=== PATIENT | male | born 1955 ===

== ENCOUNTER 2018-06-06 19:42 | Emergency (ER) | payer OTHER ==
--- NOTE | 2018-06-06 20:23 | C.PDOC ---
History Of Present Illness 63 year old male presents to the ED for evaluation of new onset pain to left lower leg, increased redness around wound for one month. Patient reports chronic left lower leg wound for one year. Denies trauma. Patient has history of DM but has been noncompliant with medications. Patient denies fever, chills, nausea, vomiting. Patient states he has been non-complaint with DM medications "because I was doing well and thought it went away." NEW ONSET PAIN L LOWER LEG, INCR REDNESS AROUND WOUND X 1 MO. CHRONIC L LOWER LEG WOUND X 1 YEAR. NO TRAUMA. HO DM BUT NONCOMPLIANT W MEDS. NO FEVER, CHILLS, NV. 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 Time Seen by Provider: 06/06/18 20:02 Chief Complaint (Nursing): Lower Extremity Problem/Injury History Per: Patient History/Exam Limitations: no limitations Onset/Duration Of Symptoms: Days Current Symptoms Are (Timing): Still Present Past Medical History Reviewed: Historical Data, Nursing Documentation, Vital Signs Vital Signs: Last Vital Signs Temp 98.2 F 06/06/18 19:51 Pulse 94 H 06/06/18 19:51 Resp BP 131/76 06/06/18 19:51 Pulse Ox 20 L 06/06/18 19:51 - Medical History PMH: No Chronic Diseases Surgical History: No Surg Hx Family History: States: Unknown Family Hx - Social History Hx Alcohol Use: No Hx Substance Use: No - Immunization History Hx Tetanus Toxoid Vaccination: No Hx Influenza Vaccination: No Hx Pneumococcal Vaccination: No Review Of Systems Constitutional: Negative for: Fever, Chills Gastrointestinal: Negative for: Nausea, Vomiting Musculoskeletal: Positive for: Leg Pain (left, lower ) Physical Exam - Physical Exam Appears: Non-toxic, No Acute Distress Skin: Warm, Dry, Other (+CHRONIC L LOWER WOUND W EXTENSIVE EXCORIATION, +SURROUNDING ERYTHEMA C/W CELLULITIS; NO DC, FOCAL FLUCTUANCE, LYMPHANGITIS; B/L SEVERE VARICOSE VEINS) Head: Atraumatic, Normacephalic Eye(s): bilateral: Normal Inspection Oral Mucosa: Moist Neck: Supple Chest: Symmetrical, No Deformity, No Tenderness Cardiovascular: Rhythm Regular, No Murmur Respiratory: Normal Breath Sounds, No Rales, No Rhonchi, No Wheezing Extremity: Capillary Refill (less than 2 seconds ), Other (+MILD SWELL LOCALIZED TO CHRONIC WOUND) Neurological/Psych: Oriented x3, Normal Speech, Normal Cognition ED Course And Treatment - Laboratory Results Result Diagrams: 06/06/18 20:49 06/06/18 20:49 O2 Sat by Pulse Oximetry: 20 (on RA ) Pulse Ox Interpretation: Normal - Other Rad L TIB FIB X-Ray: Interpreted by Me (NEG) Progress Note: Bloodwork, Left tibia fibula XR ordered and reviewed. Ancef IVPB, Lovenox SC and Toradol IVP given. Progress - Re-Evaluation Re-evaluation Note: 06/06/18 21:41 VIA TRANS COMFORTABLE NAD IMPROVED. PS WANTS TO DO OUTPT TX, WILL FU CLINIC. ADVISED RETURN TOMORROW MORNING FOR VENOUS DOPPLER, VOICES UNDERSTANDING AND AGREES W PLAN - Data Reviewed Data Reviewed: Lab, Diagnostic imaging, Old records Disposition Counseled Patient/Family Regarding: Studies Performed, Diagnosis, Need For Followup, Rx Given - Disposition Referrals: [facility] [Outside] [facility] [Outside] [facility] [Provider Group] Disposition: HOME/ ROUTINE Disposition Time: 21:42 Condition: IMPROVED Additional Instructions: NATHANIEL TALLEY A LAS 8 AM PARA EL ULTRASONIDO DE RAI PIERNA Prescriptions: Cephalexin [cephalexin] 500 mg PO Q6 #28 cap Ibuprofen [Motrin] 400 mg PO QID #30 tab metFORMIN [glucOPHAGE] 850 mg PO DAILY #30 tab Instructions: Varicose Veins (DC), Cellulitis (Skin Infection), Adult (DC) Forms: [employer] (Thai) Print Language: ROMANIAN - Clinical Impression Clinical Impression: DM type 2 with diabetic chronic skin ulcer, Cellulitis, Leg pain, Diabetes type 2, uncontrolled - Scribe Statement The provider has reviewed the documentation as recorded by the Scribe (Isha Mendiola) Provider Attestation: All medical record entries made by the Scribe were at my direction and personally dictated by me. I have reviewed the chart and agree that the record accurately reflects my personal performance of the history, physical exam, medical decision making, and the department course for this patient. I have also personally directed, reviewed, and agree with the discharge instructions and disposition.
[2018-06-06] MEDS ORDERED: Enoxaparin 40 mg Syringe SC STA (20:26)
[2018-06-06] MEDS ORDERED: SODIUM CHLORIDE 0.9% IVPB STA (20:27)
[2018-06-06] MEDS ORDERED: CEFAZOLIN IVPB STA (20:27)
[2018-06-06 20:53] LABS: BASO % 0.6 % (0.0-2.0); EOS # 0.2 K/uL (0.0-0.7); EOS % 3.1 % (0.0-4.0); LYMPH # 3.3 K/uL (1.0-4.3); LYMPH % 43.5 % (20.0-40.0); MEAN CORPUSCULAR HEMOGLOBIN 30.8 pg (27.0-31.0); MEAN CORPUSCULAR HGB CONC 33.4 g/dL (33.0-37.0); MEAN PLATELET VOLUME 6.9 fL (7.2-11.7); MONO # 0.6 K/uL (0.0-0.8); NEUT # 3.4 K/uL (1.8-7.0); NEUT % 44.8 % (50.0-75.0); RBC 4.22 Mil/uL (4.40-5.90); RED CELL DISTRIBUTION WIDTH 12.6 % (11.5-14.5); WHITE BLOOD COUNT 7.6 K/uL (4.8-10.8)
[2018-06-06 21:05] LABS: BLOOD UREA NITROGEN 15 mg/dL (9-20); CALCIUM 8.8 mg/dl (8.6-10.4); GFR NON-AFRICAN AMERICAN > 60
[2018-06-06] MEDS ORDERED: Enoxaparin 100 mg Syringe ONE (21:07)
[2018-06-06] MEDS ORDERED: ceFAZolin 1 gm in NS 1 GM/100 ML BAG IVPB ONE (21:07)
[2018-06-06 22:19] VITALS: BP 141/82; PULSE 82; RESP 16; TEMP 99
[2018-06-07 04:48] VITALS: O2SAT 20
--- NOTE | 2018-06-07 07:50 | RAD ---
Date of service: 06/06/2018 PROCEDURE: Radiographs of the left tibia and fibula. HISTORY: PAIN COMPARISON: None available. TECHNIQUE: Frontal and lateral views obtained. FINDINGS: BONES: No fracture or destructive lesion. JOINT SPACES: Unremarkable. OTHER FINDINGS: Increased density within the subcutaneous soft tissues throughout the left leg suggests potential varices and/or cellulitis. No emphysematous soft tissue changes are associated or retained radiodense foreign body. IMPRESSION: No acute fracture or dislocation left tibia or fibula. Diffusely increased subcutaneous soft tissue density could reflect cellulitis with potential varices.
== END 2018-06-06 22:19 | disposition home or self-care (01) ==
LOC: C.ER 19:42
DX: L98.499 Non-pressure chronic ulcer of skin of other sites with unspecified severity (principal); L03.116 Cellulitis of left lower limb; E11.622 Type 2 diabetes mellitus with other skin ulcer; M79.605 Pain in left leg
CPT/HCPCS: 73590; 80048; 82948; 85025; 87040; 96372; 96374; 99285; J0690; J1650; J1885

== ENCOUNTER 2018-06-07 08:46 | Observation (INO) | payer OTHER ==
--- NOTE | 2018-06-07 11:00 | C.PDOC ---
History Of Present Illness Pt returned to the ED as instructed for a LLE duplex to assess for DVT. Pt was seen here yesterday and evaluated for diabetic left leg wound with cellulitis. Time Seen by Provider: 06/07/18 09:12 Chief Complaint (Nursing): Lower Extremity Problem/Injury History Per: Patient, Information Systems Consultant History/Exam Limitations: language barrier Onset/Duration Of Symptoms: Days Current Symptoms Are (Timing): Still Present Severity: Moderate Additional History Per: Prior Records Past Medical History Reviewed: Historical Data, Nursing Documentation, Vital Signs Vital Signs: Last Vital Signs Temp 98 F 06/07/18 09:01 Pulse 99 H 06/07/18 09:01 Resp 18 06/07/18 09:01 BP 136/82 06/07/18 09:01 Pulse Ox 99 06/07/18 09:01 - Medical History PMH: Diabetes Family History: States: Unknown Family Hx - Social History Hx Alcohol Use: No Hx Substance Use: No - Immunization History Hx Tetanus Toxoid Vaccination: No Hx Influenza Vaccination: No Hx Pneumococcal Vaccination: No Review Of Systems Except As Marked, All Systems Reviewed And Found Negative. Constitutional: Negative for: Fever Cardiovascular: Negative for: Chest Pain Respiratory: Negative for: Shortness of Breath, Hemoptysis Gastrointestinal: Negative for: Vomiting, Abdominal Pain Musculoskeletal: Positive for: Leg Pain (left). Negative for: Neck Pain, Back Pain Skin: Positive for: Rash Neurological: Negative for: Weakness, Numbness Physical Exam - Physical Exam Appears: Non-toxic, No Acute Distress Skin: Warm, Dry, Other (Large wound on anterior left lower leg with surrounding erythema) Head: Atraumatic, Normacephalic Eye(s): bilateral: PERRL, EOMI Neck: Normal ROM, Supple Cardiovascular: Rhythm Regular Respiratory: Normal Breath Sounds, No Accessory Muscle Use Gastrointestinal/Abdominal: Soft, No Tenderness Extremity: Normal ROM, Capillary Refill (wnl) Pulses: Left Dorsalis Pedis: Normal Neurological/Psych: Oriented x3, Normal Motor, Normal Sensation ED Course And Treatment O2 Sat by Pulse Oximetry: 99 Pulse Ox Interpretation: Normal - CT Scan/US BLE duplex Other Rad Studies (CT/US): Radiology Report Reviewed CT/US Interpretation: DVT in left leg Disposition Discussed With : Katie Vargas Comment: She accepted pt on hospitalist service. Doctor Will See Patient In The: Hospital Counseled Patient/Family Regarding: Studies Performed, Diagnosis - Disposition Disposition: HOSPITALIZED Disposition Time: 11:22 Condition: STABLE - Clinical Impression Clinical Impression: Left leg DVT, Diabetic ulcer of left lower leg, Cellulitis of left leg
[2018-06-07] MEDS ORDERED: Enoxaparin 80 mg Syringe SC STA (11:01)
[2018-06-07] MEDS ORDERED: Clindamycin 600mg/50ml D5W 600 MG/50 ML VIAL IVPB SCH ×2 (11:15→13:45)
[2018-06-07 11:41] LABS: BASO # 0.1 K/uL (0.0-0.2); BASO % 1.2 % (0.0-2.0); EOS # 0.2 K/uL (0.0-0.7); EOS % 3.3 % (0.0-4.0); HEMOGLOBIN 12.2 g/dL (12.0-18.0); LYMPH # 2.3 K/uL (1.0-4.3); LYMPH % 43.1 % (20.0-40.0); MEAN CELL VOLUME 92.2 fL (80.0-94.0); MEAN CORPUSCULAR HEMOGLOBIN 31.3 pg (27.0-31.0); MEAN CORPUSCULAR HGB CONC 33.9 g/dL (33.0-37.0); MEAN PLATELET VOLUME 6.8 fL (7.2-11.7); MONO # 0.5 K/uL (0.0-0.8); MONO % 8.9 % (0.0-10.0); NEUT # 2.4 K/uL (1.8-7.0); NEUT % 43.5 % (50.0-75.0); RBC 3.92 Mil/uL (4.40-5.90); RED CELL DISTRIBUTION WIDTH 12.5 % (11.5-14.5); WHITE BLOOD COUNT 5.5 K/uL (4.8-10.8)
[2018-06-07] MEDS ORDERED: Enoxaparin 80 mg Syringe ONE (11:44)
[2018-06-07 12:04] LABS: BLOOD UREA NITROGEN 23 mg/dL (9-20); GFR NON-AFRICAN AMERICAN > 60
[2018-06-07 12:05] LABS: ALB/GLOB RATIO 1.3 (1.0-2.1); ALBUMIN 3.9 g/dL (3.5-5.0); ALT/SGPT 8 U/L (21-72); AST/SGOT 14 U/L (17-59); CALCIUM 8.1 mg/dl (8.6-10.4)
--- NOTE | 2018-06-07 12:11 | CP.PCM.HP ---
<Alisson Rhoades - Last Filed: 06/07/18 17:25> History of Present Illness - History of Present Illness History of Present Illness: PGY-1 Alisson Rhoades D.O. H&P for Dr. Vargas's service: Patient is a 63 yo male with a history of untreated diabetes who presents with a L leg wound and pain. Patient states that he sustained the initial wound about 1 year ago by scratching his leg when putting on boots. He says he never sought treatment because it was not bothering him. He did not take any medications or put anything topical on the wound. He has left it open. Patient denies any numbn ess or tingling. He noticed some red-colored drainage awhile back but nothing significant since. He complains of severe itching and he admits to scratching. For the past 1 month, the patient has noticed increased pain and redness. For the past week, it has interfered with his walking- he describes it feeling like someone is pulling down on his leg while ambulating. He denies any fevers or chills. He came to the ED yesterday. They gave him Lovenox and Cefazolin. Patient opted to follow-up outpatient. The ED recommended he return to the hospital the next day for venous Doppler. The patient complied and came back today. 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 Drinks 1 beer every few days; smokes 1 cigarette every few days x many years, smokes crack- last use 1 month ago; denies IVDA PMD: none Present on Admission - Present on Admission Any Indicators Present on Admission: No History of DVT/PE: No History of Uncontrolled Diabetes: No Urinary Catheter: No Decubitus Ulcer Present: No History Surgical Site Infection Following: None Review of Systems - Constitutional Constitutional: absent: Chills, Fever, Headache, Weakness - EENT Eyes: absent: Change in Vision Ears: absent: Decreased Hearing Nose/Mouth/Throat: absent: Nasal Congestion - Cardiovascular Cardiovascular: absent: Chest Pain, Diaphoresis, Dyspnea, Edema, Palpitations - Respiratory Respiratory: absent: Cough, Dyspnea, Wheezing - Gastrointestinal Gastrointestinal: absent: Abdominal Pain, Constipation, Diarrhea, Nausea, Vomiting - Genitourinary Genitourinary: absent: Dysuria, Hematuria - Integumentary Integumentary: As Per HPI, Non-Healing Lesions, Pruritus - Neurological Neurological: Abnormal Gait (antalgic). absent: Dizziness, Numbness, Focal Weakness, Headaches, Tingling - Endocrine Endocrine: absent: Excessive Sweating, Fatigue, Palpitations - Hematologic/Lymphatic Hematologic: absent: Easy Bleeding, Easy Bruising, Lymphadenopathy Past Patient History - Infectious Disease Hx of Infectious Diseases: None - Tetanus Immunizations Tetanus Immunization: Unknown - Past Medical History & Family History Past Medical History?: Yes Pertinent Family History: mother, grandmother- diabetes - Past Social History Smoking Status: Light Smoker < 10 Cigarettes Daily Chewing Tobacco Use: No Cigar Use: No Occupation: cook Alcohol: < 2 Drinks/Day Drugs: Cocaine Home Situation {Lives}: Alone - ENDOCRINE/METABOLIC Hx Endocrine Disorders: Yes Hx Diabetes Mellitus Type 2: Yes - PSYCHIATRIC Hx Substance Use: No - SURGICAL HISTORY Hx Surgeries: No Meds Allergies/Adverse Reactions: Allergies Allergy/AdvReac Type Severity Reaction Status Date / Time No Known Allergies Allergy Verified 06/07/18 09:04 Physical Exam - Constitutional Appears: Non-toxic, No Acute Distress - Head Exam Head Exam: ATRAUMATIC, NORMAL INSPECTION - Eye Exam Eye Exam: EOMI, Normal appearance, PERRL - ENT Exam ENT Exam: Mucous Membranes Dry - Neck Exam Neck exam: Positive for: Normal Inspection - Respiratory Exam Respiratory Exam: Clear to Auscultation Bilateral, NORMAL BREATHING PATTERN. absent: Wheezes, Respiratory Distress - Cardiovascular Exam Cardiovascular Exam: REGULAR RHYTHM, +S1, +S2. absent: Systolic Murmur Additional comments: palpable pulses b/l of extremities - GI/Abdominal Exam GI & Abdominal Exam: Soft. absent: Distended, Tenderness Additional comments: umbilical hernia- easily reducible, painless - Extremities Exam Additional comments: LE varices b/l - Neurological Exam Neurological exam: Alert, CN II-XII Intact, Oriented x3 - Psychiatric Exam Psychiatric exam: Normal Affect, Normal Mood ( ) - Skin Skin Exam: Dry, Normal Color, Warm Additional comments: 7x10 cm wound on anterior tibia, no drainage or bleeding, dry scabs overlying area, surrounding erythema, warmth dry, cracked skin on feet b/l Results - Vital Signs Recent Vital Signs: Last Vital Signs Temp 98.4 F 06/07/18 11:44 Pulse 86 06/07/18 11:44 Resp 20 06/07/18 11:44 BP 160/90 H 06/07/18 11:44 Pulse Ox 99 06/07/18 11:44 - Labs Result Diagrams: 06/07/18 11:35 06/07/18 11:35 Labs: Laboratory Results - last 24 hr 06/07/18 06/07/18 06/07/18 11:35 11:35 11:35 WBC 5.5 RBC 3.92 L Hgb 12.2 Hct 36.1 MCV 92.2 MCH 31.3 H MCHC 33.9 RDW 12.5 Plt Count 291 MPV 6.8 L Neut % (Auto) 43.5 L Lymph % (Auto) 43.1 H [place] % (Auto) 8.9 Eos % (Auto) 3.3 Baso % (Auto) 1.2 Neut # (Auto) 2.4 Lymph # (Auto) 2.3 [place] # (Auto) 0.5 Eos # (Auto) 0.2 Baso # (Auto) 0.1 PT 11.0 INR 1.0 APTT 40 H Sodium 135 Potassium 4.1 Chloride 103 Carbon Dioxide 27 Anion Gap 9 L BUN 23 H Creatinine 0.6 L Est GFR ( Amer) > 60 Est GFR (Non-Af Amer) > 60 Random Glucose 193 H Calcium 8.1 L Total Bilirubin 0.4 AST 14 L ALT 8 L Alkaline Phosphatase 129 H Total Protein 6.9 Albumin 3.9 Globulin 3.0 Albumin/Globulin Ratio 1.3 Assessment & Plan - Assessment and Plan (Free Text) Assessment: Patient is a 63 yo male with a history of untreated diabetes who presents with L leg pain. He has a nonhealing wound on his L anterior tibia and was found to have a LLE DVT. Plan: Lower leg wound - Present for 1 year, nonhealing - LLE XR: soft tissue density representing cellulitis, varices - f/u wound and blood Cx - Zosyn 3.375 g IV Q6H- started 06/07 - Vanco 1 g IV Q12H- started 06/07 - Florastor 250 mg PO BID - Will transition to PO clindamycin Left lower extremity deep vein thrombosis, provoked - Contributing factors- smoking, obesity, untreated DM, nonhealing wound - LE Doppler: DVT in L gastrocnemius vein, severe reflux of L great saphenous vein - Start Eliquis 10 mg PO BID x 7 days then 5 mg BID Type 2 diabetes mellitus - Patient was previously on insulin but has been off all medications for a few years - f/u HgbA1c - f/u lipid panel - f/u microalbuminuria - Diabetic diet - Accuchecks ACHS - Hypoglycemia protocol - ISS low dose - Lisinopril 5 mg PO daily - ASA 81 mg PO daily - Crestor 2.5 mg PO QHS - tobacco prevention health educator consult - Crt referral Polysubstance use - Patient admits to alcohol, tobacco, and crack use - f/u UDS - Cessation counseling- extensive conversation regarding substance use consequences, including heart disease - AA and NA referral - Nicodersylvia daily Bilateral onychomycosis - Podiatry consult (Yossi) Ppx: VTE: SCDs contraindicated, starting Eliquis for therapeutic anticoag GI: not indicated Code status: full code Case was discussed with attending, Dr. Vargas. <Katie Vargas V - Last Filed: 06/07/18 22:08> Results - Vital Signs Recent Vital Signs: Last Vital Signs Temp 98.4 F 06/07/18 16:00 Pulse 93 H 06/07/18 16:00 Resp 20 06/07/18 16:00 BP 119/71 06/07/18 16:00 Pulse Ox 96 06/07/18 16:00 - Labs Result Diagrams: 06/07/18 11:35 06/07/18 11:35 Labs: Laboratory Results - last 24 hr 06/07/18 06/07/18 06/07/18 11:35 11:35 11:35 WBC 5.5 RBC 3.92 L Hgb 12.2 Hct 36.1 MCV 92.2 MCH 31.3 H MCHC 33.9 RDW 12.5 Plt Count 291 MPV 6.8 L Neut % (Auto) 43.5 L Lymph % (Auto) 43.1 H [place] % (Auto) 8.9 Eos % (Auto) 3.3 Baso % (Auto) 1.2 Neut # (Auto) 2.4 Lymph # (Auto) 2.3 [place] # (Auto) 0.5 Eos # (Auto) 0.2 Baso # (Auto) 0.1 PT 11.0 INR 1.0 APTT 40 H Sodium 135 Potassium 4.1 Chloride 103 Carbon Dioxide 27 Anion Gap 9 L BUN 23 H Creatinine 0.6 L Est GFR ( Amer) > 60 Est GFR (Non-Af Amer) > 60 POC Glucose (mg/dL) Random Glucose 193 H Calcium 8.1 L Total Bilirubin 0.4 AST 14 L ALT 8 L Alkaline Phosphatase 129 H Total Protein 6.9 Albumin 3.9 Globulin 3.0 Albumin/Globulin Ratio 1.3 06/07/18 06/07/18 06/07/18 13:30 16:26 21:43 WBC RBC Hgb Hct MCV MCH MCHC RDW Plt Count MPV Neut % (Auto) Lymph % (Auto) [place] % (Auto) Eos % (Auto) Baso % (Auto) Neut # (Auto) Lymph # (Auto) [place] # (Auto) Eos # (Auto) Baso # (Auto) PT INR APTT Sodium Potassium Chloride Carbon Dioxide Anion Gap BUN Creatinine Est GFR ( Amer) Est GFR (Non-Af Amer) POC Glucose (mg/dL) 159 H 209 H 115 H Random Glucose Calcium Total Bilirubin AST ALT Alkaline Phosphatase Total Protein Albumin Globulin Albumin/Globulin Ratio Attending/Attestation - Attestation I have personally seen and examined this patient.: Yes I have fully participated in the care of the patient.: Yes I have reviewed all pertinent clinical information: Yes Notes (Text): 63 year old Male PMHx diabetes for more than ten plus years, tobacco abuse, prior cocaine use comes following initial evaluation for left lower extremity anterior minor wound in the emergency room. He was prescribed antibiotic he was unable to fill them since pharmacy was not opened. He came back to evaluated with US given this was not available in the Emergency Room. Patient had been given Lovenox 100mg sub yesterday for prophylactic treatment. Patient completed US noted for acute DVT. Likely provoked given patient is current smoker, obesity, sedentary, with noted ulcer over the anterior aspect of minor. Patient denies history of cancer, and has never had endoscopy or colonoscopy. Patient is currently not on medications for his diabetes which will impact wound healing. Will given antibiotic therapy for his cellulitis, started Eliquis for treatment of DVT, evaluation to be obtained by podiatry. Patient strongly counselled regarding adverse effects of cocaine use including cardiac arrest and , tobacco use including clot formation, cancer, and delayed wound healing, and the adverse complications of diabetes including eye, heart, kidney, and foot problems as well. Possible discharge tomorrow; patient will need to be established at the [facility] for further diabetes management and possible podiatry clinic, Assessment/Plan 1) Nonhealing Lower leg wound Assessment/plan - Present for 1 year, nonhealing - LLE XR: soft tissue density representing cellulitis, varices - f/u wound and blood Cx - Zosyn 3.375 g IV Q6H- started 06/07/18 - Vanco 1 g IV Q12H- started 06/07/18 - Florastor 250 mg PO BID - Will transition to PO clindamycin for discharge 2) Left lower extremity deep vein thrombosis, provoked Assessment/plan - Contributing factors- smoking, obesity, untreated DM, nonhealing wound - LE Doppler: DVT in L gastrocnemius vein, severe reflux of L great saphenous vein - Given therapuetic lovenox in ED night before and today; transition to NOAC - Start Eliquis 10 mg PO BID x 7 days then 5 mg BID to complete 3 month course for DVT 3) Type 2 diabetes mellitus, history of noncompliance Assessment/plan - Patient was previously on insulin but has been off all medications for a few years - f/u HgbA1c - f/u lipid panel - f/u microalbuminuria - Diabetic diet - Accuchecks ACHS - Hypoglycemia protocol - ISS low dose - Lisinopril 5 mg PO daily for renoprotection - ASA 81 mg PO daily for cardioprotective agent - Crestor 2.5 mg PO QHS given diabetes is a cardiovascular equivalent - tobacco prevention health educator consult - Crt referral 4) Polysubstance use Assessment/plan - Patient admits to alcohol, tobacco, and crack use - f/u UDS - Cessation counseling- extensive conversation regarding substance use consequences, including heart disease - AA and NA referral - Nicoderm daily 5) Bilateral onychomycosis Assessment/plan - Podiatry consult (Yossi) for further evaluation 6) Ppx: Assessment/plan * VTE: SCDs contraindicated given acute DVT, starting Eliquis for therapeutic treatment for DVT * GI: not indicated * gentle iv hydration given patient appears clinically dry
[2018-06-07] MEDS ORDERED: Glucagon Recombinant 1 mg Inj IM PRN (12:56)
[2018-06-07] MEDS ORDERED: Dextrose 50% SYRINGE Inj (50 ml) IVP PRN (12:56)
--- NOTE | 2018-06-07 13:52 | VASCLAB ---
Date of service: 06/07/2018 PROCEDURE: Lower Extremity Venous Duplex Exam. HISTORY: Left leg cellulitis, r/o DVT PRIORS: None. TECHNIQUE: Bilateral common femoral, femoral, popliteal and posterior tibial, peroneal and great saphenous veins were evaluated. Flow was assessed with color Doppler, compressibility, assessment of phasic flow and augmentation response. Report prepared by RABIA Galvin FINDINGS: RIGHT: 1. Common Femoral Vein: 1.1. Compressibility - Fully compressible: Thrombus - None : Flow - Phasic: Augmentation -Normal: Reflux - None. 2. Femoral Vein: 2.1. Compressibility - Fully compressible: Thrombus - None : Flow - Phasic: Augmentation -Normal: Reflux - None. 3. Popliteal Vein: 3.1. Compressibility - Fully compressible: Thrombus - None : Flow - Phasic: Augmentation -Normal: Reflux - None. 4. Posterior Tibial Vein: 4.1. Compressibility - Fully compressible: Thrombus - None: Flow - Phasic: Augmentation -Normal: Reflux - None. 5. Peroneal Vein: 5.1. Compressibility - Fully compressible: Thrombus - None: Flow - Phasic: Augmentation -Normal: Reflux - None. 6. Great Saphenous Vein: 6.1. Compressibility - Fully compressible: Thrombus - None: Flow - Phasic: Augmentation - Normal: Reflux - Mild3.39s LEFT: 1. Common Femoral Vein: 1.1. Compressibility - Fully compressible: Thrombus - None: Flow - Phasic: Augmentation -Normal: Reflux - None. 2. Femoral Vein: 2.1. Compressibility - Fully compressible: Thrombus - None: Flow - Phasic: Augmentation -Normal: Reflux - None. 3. Popliteal Vein: 3.1. Compressibility - Fully compressible: Thrombus - None : Flow - Phasic: Augmentation -Normal: Reflux - None. 4. Posterior Tibial Vein: 4.1. Compressibility - Fully compressible: Thrombus - None: Flow - Phasic: Augmentation -Normal: Reflux - None. 5. Peroneal Vein: 5.1. Compressibility - Fully compressible: Thrombus - None: Flow - Phasic: Augmentation -Normal: Reflux - None. 6. Great Saphenous Vein: 6.1. Compressibility - Fully compressible: Thrombus - None: Flow - Phasic: Augmentation - Normal: Reflux - Severe4.11s OTHER FINDINGS: Right: None significant. Left: The left gastrocnemius veins are partially compressible with echolucent thrombus formation. Findings were conveyed to Leandra Berman at 10:38 a.m. IMPRESSION: Right: No evidence of deep or superficial vein thrombosis of the right lower extremity. Mild reflux noted of the right great saphenous vein. Left: Acute deep vein thrombosis of the left gastrocnemius veins. Severe reflux noted of the left great saphenous vein.
[2018-06-07] MEDS ORDERED: Clindamycin 600mg/50ml NS 600 MG/50 ML BAG IVPB ONE (14:00)
[2018-06-07] MEDS ORDERED: Sodium Chloride 0.9% 1,000 ML IV SCH ×2 (14:00→22:00)
[2018-06-07] MEDS ORDERED: Sodium Chloride 0.9% 1,000 ML ONE (14:15)
[2018-06-07 16:38] VITALS: RESP 20
[2018-06-07] MEDS: Piperacillin/Tazobact 3.375 GM in Sodium Chloride 100 ML IVPB SCH ×2 (17:40→22:15)
[2018-06-07] MEDS: (Novolin R) Insulin Human Regular 100 units/ml vial SC SCH ×2 (17:48→22:20)
[2018-06-07] MEDS: Saccharomyces Boulardi 250 mg Cap PO SCH (17:49)
[2018-06-07] MEDS: Vancomycin 1 gm/NS 200 ml 1 GM/200 ML BAG IVPB SCH (18:15)
[2018-06-07] MEDS ORDERED: Rosuvastatin Calcium 2.5 mg Tab PO SCH (22:00)
[2018-06-07 22:39] LABS: URINE BILIRUBIN NEGATIVE (NEGATIVE); URINE CLARITY CLEAR (Clear); URINE COLOR STRAW (YELLOW); URINE GLUCOSE (UA) NORMAL (Normal)
[2018-06-07 22:40] LABS: URINE BLOOD NEGATIVE (NEGATIVE); URINE LEUKOCYTE ESTERASE NEG Leu/uL (Negative); URINE PROTEIN NEGATIVE (NEGATIVE); URINE UROBILINOGEN 0.2 mg/dL (0.2-1.0)
[2018-06-07 22:41] LABS: SQUAMOUS EPITHIAL < 1 /hpf (0-5)
[2018-06-07 22:45] LABS: BARBITURATES, UR NEGATIVE (NEGATIVE); BENZODIAZEPINES, UR NEGATIVE (NEGATIVE); OPIATES, UR NEGATIVE (NEGATIVE); PHENCYCLIDINE, UR NEGATIVE (NEGATIVE)
[2018-06-08] MEDS: Piperacillin/Tazobact 3.375 GM in Sodium Chloride 100 ML IVPB SCH ×3 (02:29→15:07)
[2018-06-08] MEDS: Vancomycin 1 gm/NS 200 ml 1 GM/200 ML BAG IVPB SCH (03:18)
--- NOTE | 2018-06-08 07:25 | CP.PCM.DIS ---
Provider - Provider Date of Admission: 06/07/18 11:24 Attending physician: Katie Vargas DO Primary care physician: none Consults: 06/07/18 12:55 Podiatry Consult Routine Comment: please inform podiatry resident Consulting Provider: Charlene Sy Consulting Physician: Charlene Sy Reason for Consult: left lower anterior minor ulcer, tinea pedis, diabetic 06/07/18 17:15 Diabetic Education Referral Routine Comment: Physician Instructions: Reason For Exam: untreated t2dm 06/07/18 21:52 Wound Care [Nursing Referral for Wound Care] Routine Comment: Physician Instructions: Reason For Exam: anterior minor left lower extremity Time Spent in preparation of Discharge (in minutes): 45 Diagnosis - Discharge Diagnosis (1) Left leg DVT Status: Acute Priority: High (2) Diabetic ulcer of left lower leg Status: Acute Priority: High (3) T2DM (type 2 diabetes mellitus) Status: Chronic Priority: High (4) Drug use Status: Chronic Priority: Medium (5) Onychomycosis Status: Chronic Priority: Low Hospital Course - Lab Results Lab Results: Most Recent Lab Values WBC 5.5 K/uL (4.8-10.8) 06/07/18 11:35 RBC 3.92 Mil/uL (4.40-5.90) L 06/07/18 11:35 Hgb 12.2 g/dL (12.0-18.0) 06/07/18 11:35 Hct 36.1 % (35.0-51.0) 06/07/18 11:35 MCV 92.2 fL (80.0-94.0) 06/07/18 11:35 MCH 31.3 pg (27.0-31.0) H 06/07/18 11:35 MCHC 33.9 g/dL (33.0-37.0) 06/07/18 11:35 RDW 12.5 % (11.5-14.5) 06/07/18 11:35 Plt Count 291 K/uL (130-400) 06/07/18 11:35 MPV 6.8 fL (7.2-11.7) L 06/07/18 11:35 Neut % (Auto) 43.5 % (50.0-75.0) L 06/07/18 11:35 Lymph % (Auto) 43.1 % (20.0-40.0) H 06/07/18 11:35 [place] % (Auto) 8.9 % (0.0-10.0) 06/07/18 11:35 Eos % (Auto) 3.3 % (0.0-4.0) 06/07/18 11:35 Baso % (Auto) 1.2 % (0.0-2.0) 06/07/18 11:35 Neut # (Auto) 2.4 K/uL (1.8-7.0) 06/07/18 11:35 Lymph # (Auto) 2.3 K/uL (1.0-4.3) 06/07/18 11:35 [place] # (Auto) 0.5 K/uL (0.0-0.8) 06/07/18 11:35 Eos # (Auto) 0.2 K/uL (0.0-0.7) 06/07/18 11:35 Baso # (Auto) 0.1 K/uL (0.0-0.2) 06/07/18 11:35 PT 11.0 SECONDS (9.7-12.2) 06/07/18 11:35 INR 1.0 06/07/18 11:35 APTT 40 SECONDS (21-34) H 06/07/18 11:35 Sodium 135 mmol/L (132-148) 06/07/18 11:35 Potassium 4.1 mmol/L (3.6-5.2) 06/07/18 11:35 Chloride 103 mmol/L (98-107) 06/07/18 11:35 Carbon Dioxide 27 mmol/L (22-30) 06/07/18 11:35 Anion Gap 9 (10-20) L 06/07/18 11:35 BUN 23 mg/dL (9-20) H 06/07/18 11:35 Creatinine 0.6 mg/dL (0.8-1.5) L 06/07/18 11:35 Est GFR ( Amer) > 60 06/07/18 11:35 Est GFR (Non-Af Amer) > 60 06/07/18 11:35 POC Glucose (mg/dL) 115 mg/dL (65-110) H 06/07/18 21:43 Random Glucose 193 mg/dL (75-110) H 06/07/18 11:35 Calcium 8.1 mg/dl (8.6-10.4) L 06/07/18 11:35 Total Bilirubin 0.4 mg/dL (0.2-1.3) 06/07/18 11:35 AST 14 U/L (17-59) L 06/07/18 11:35 ALT 8 U/L (21-72) L 06/07/18 11:35 Alkaline Phosphatase 129 U/L (38-126) H 06/07/18 11:35 Total Protein 6.9 g/dL (6.3-8.3) 06/07/18 11:35 Albumin 3.9 g/dL (3.5-5.0) 06/07/18 11:35 Globulin 3.0 gm/dL (2.2-3.9) 06/07/18 11:35 Albumin/Globulin Ratio 1.3 (1.0-2.1) 06/07/18 11:35 Urine Color Straw (YELLOW) 06/07/18 22:19 Urine Clarity Clear (Clear) 06/07/18 22: Urine pH 8.0 (5.0-8.0) 06/07/18 22:19 Ur Specific [place] 1.016 (1.003-1.030) 06/07/18 22:19 Urine Protein Negative mg/dL (NEGATIVE) 06/07/18 22: Urine Glucose (UA) Normal mg/dL (Normal) 06/07/18 22:19 Urine Ketones Negative mg/dL (NEGATIVE) 06/07/18 22:19 Urine Blood Negative (NEGATIVE) 06/07/18 22: Urine Nitrate Negative (NEGATIVE) 06/07/18 22: Urine Bilirubin Negative (NEGATIVE) 06/07/18 22: Urine Urobilinogen 0.2 mg/dL (0.2-1.0) 06/07/18 22:19 Ur Leukocyte Esterase Neg Maria M/uL (Negative) 06/07/18 22:19 Urine WBC (Auto) < 1 /hpf (0-5) 06/07/18 22:19 Urine RBC (Auto) < 1 /hpf (0-3) 06/07/18 22:19 Ur Squamous Epith Cells < 1 /hpf (0-5) 06/07/18 22:19 Urine Microalbumin 7.8 mg/L (0.0-16.6) 06/07/18 22:19 Urine Opiates Screen Negative (NEGATIVE) 06/07/18 22:19 Urine Methadone Screen Negative (NEGATIVE) 06/07/18 22:19 Ur Barbiturates Screen Negative (NEGATIVE) 06/07/18 22:19 Ur Phencyclidine Scrn Negative (NEGATIVE) 06/07/18 22:19 Ur Amphetamines Screen Negative (NEGATIVE) 06/07/18 22:19 U Benzodiazepines Scrn Negative (NEGATIVE) 06/07/18 22:19 U Oth Cocaine Metabols Negative (NEGATIVE) 06/07/18 22:19 U Cannabinoids Screen Negative (NEGATIVE) 06/07/18 22:19 - Hospital Course Hospital Course: Patient is a 63 yo male with a history of untreated diabetes who presents with a L leg wound and pain. Patient states that he sustained the initial wound about 1 year ago by scratching his leg when putting on boots. He says he never sought treatment because it was not bothering him. He did not take any medications or put anything topical on the wound. He has left it open. Patient denies any numbness or tingling. He noticed some red-colored drainage awhile back but nothing significant since. He complains of severe itching and he admits to scratching. For the past 1 month, the patient has noticed increased pain and redness. For the past week, it has interfered with his walking- he describes it feeling like someone is pulling down on his leg while ambulating. He denies any fevers or chills. He came to the ED yesterday. They gave him Lovenox and Cefazolin. Patient opted to follow-up outpatient. The ED recommended he return to the hospital the next day for venous Doppler. The patient complied and came back today. Lower extremity Doppler showed a DVT in L gastrocnemius vein and severe reflux of L great saphenous vein. Patient was started on Eliquis. LLE XR demonstrated soft tissue density representing cellulitis and varices without signs of osteomyelitis. Wound seems consistent with venous stasis. Patient was started on broad spectrum antibiotics. Podiatry was consulted and recommended outpatient care, no dressings needed. Patient's A1c is 9. Glucose was monitored ACHS, and he was placed on an insulin sliding scale. He was instructed on how to check his glucose at home and record results on a log. Upon discharge, patient was ambulating independently without significant pain. He was tolerating his medications. His glucose was fairly controlled. His vitals were stable. Patient was counseled several times about diet/exercise and drinking/smoking/drug cessation. Discharge Exam - Head Exam Head Exam: ATRAUMATIC Additional comments: dry scaly patches interspersed - Eye Exam Eye Exam: EOMI, Normal appearance - ENT Exam ENT Exam: Mucous Membranes Moist - Neck Exam Neck exam: Normal Inspection - Respiratory Exam Respiratory Exam: Clear to PA & Lateral, NORMAL BREATHING PATTERN, UNREMARKABLE - Cardiovascular Exam Cardiovascular Exam: REGULAR RHYTHM, +S1, +S2 - GI/Abdominal Exam GI & Abdominal Exam: Soft, Unremarkable. absent: Distended, Tenderness - Extremities Exam Extremities exam: normal capillary refill, pedal pulses present Additional comments: b/l LE varices - Back Exam Back exam: NORMAL INSPECTION - Neurological Exam Neurological exam: Alert, CN II-XII Intact, Normal Gait, Oriented x3 - Psychiatric Exam Psychiatric exam: Normal Affect, Normal Mood - Skin Additional comments: 7x10 cm wound on anterior tibia, no drainage or bleeding, dry scabs overlying area, surrounding erythema, warmth - area of arythema outlined in marker- slightly decreased in size dry, cracked skin on feet b/l Discharge Plan - Discharge Medications Prescriptions: Aspirin [Ecotrin] 81 mg PO DAILY #30 tabec Blood-Glucose Control, Normal [Meter-Check] 1 each ACHS #1 each Clindamycin [Cleocin] 300 mg PO TID #21 cap Fluocinonide [Lidex 0.05% Topical Solution] 20 applic EXT Q12H #1 bottle Lancets/Blood Glucose Strips [Fora [id number] Strp-Lnct] 1 each ACHS #1 combo..pkg Lisinopril [Zestril] 5 mg PO DAILY #30 tab MetFORMIN [glucoPHAGE] 1,000 mg PO BID #60 tab Rosuvastatin Calcium 2.5 [Crestor] 2.5 mg PO HS #30 tab - Follow Up Plan Condition: STABLE Disposition: HOME/ ROUTINE Patient education suggested?: Yes Instructions: Clindamycin (Systemic), Cellulitis (Skin Infection), Adult (DC), Aspirin, Lisinopril, Metformin, Rosuvastatin, Deep Venous Thrombosis (DC) Additional Instructions: Follow[facility]up with [facility]. You have an appointment on June 27 at 2:30 PM. This will serve as your primary care provider and will coordinate all your medical care and provide you with medication refills. You can call [phone] for assistance. Follow-up with the podiatry clinic at [facility] as well. It is important to take all medications as instructed. You will be prescribed Eliquis for your blood clot. You can use the prescription card at [facility] across from the hospital. You are instructed to stop drinking alcohol, smoking, and using drugs. Please attend Alcoholics Anonymous (AA) and Narcotics Anonymous (NA) meetings for support. YOu may also buy nicotine gum/patches [id number]. You are encouraged to start a healthy diet and exercise regimen. If symptoms recur, return to the nearest emergency room. Seguimiento con la Clnica de [place] en el [facility]. Tiene florencio manish el a las 2:30 PM. [place] servir dilip mcmahon proveedor de atencin primaria y coordinar toda mcmahon atencin mdica y le proporcionar reabastecimientos de medicamentos. Puede llamar al [phone] para obtener ayuda. Seguimiento con la clnica de podologa en el [facility]. Es importante preston todos los medicamentos dilip se indica. Le recetarn Eliquis para mcmahon cogulo de karla. Puede usar la tarjeta de recetas en [facility] frente al hospital. Se le indica que deje de beber alcohol, fumar y consumir drogas. Por favor asista a las reuniones de Alcohlicos Annimos (AA) y Narcticos Annimos (NA) para apoyo. Hector puede comprar chicles / parches de nicotina de venta [place]. Se le recomienda comenzar florencio dieta saludable y un rgimen de ejercicio. Si los sntomas se repiten, regrese a la saleem de emergencias ms cercana. Referrals: [facility] [Outside] Charlene Sy DPM [Staff Provider] -
[2018-06-08 07:36] LABS: BASO # 0.1 K/uL (0.0-0.2); EOS # 0.2 K/uL (0.0-0.7); HEMOGLOBIN 12.1 g/dL (12.0-18.0); LYMPH # 2.7 K/uL (1.0-4.3); LYMPH % 45.7 % (20.0-40.0); MEAN CELL VOLUME 91.6 fL (80.0-94.0); MEAN CORPUSCULAR HEMOGLOBIN 31.5 pg (27.0-31.0); MEAN CORPUSCULAR HGB CONC 34.4 g/dL (33.0-37.0); MEAN PLATELET VOLUME 6.9 fL (7.2-11.7); MONO # 0.5 K/uL (0.0-0.8); MONO % 8.3 % (0.0-10.0); NEUT # 2.5 K/uL (1.8-7.0); NRBC % 0.2 % (0.0-2.0); RBC 3.85 Mil/uL (4.40-5.90); RED CELL DISTRIBUTION WIDTH 12.4 % (11.5-14.5); WHITE BLOOD COUNT 5.9 K/uL (4.8-10.8)
[2018-06-08 07:57] LABS: ALB/GLOB RATIO 1.2 (1.0-2.1); ALBUMIN 3.5 g/dL (3.5-5.0); ALT/SGPT 14 U/L (21-72); AST/SGOT 19 U/L (17-59); BLOOD UREA NITROGEN 12 mg/dL (9-20); CALCIUM 8.3 mg/dl (8.6-10.4); GFR NON-AFRICAN AMERICAN > 60; HDL CHOLESTEROL 29 mg/dL (30-70)
[2018-06-08 08:12] LABS: LDL CHOLESTEROL 85 mg/dL (0-129)
[2018-06-08] MEDS: (Novolin R) Insulin Human Regular 100 units/ml vial SC SCH ×2 (08:12→12:24)
[2018-06-08] MEDS: Saccharomyces Boulardi 250 mg Cap PO SCH (10:15)
--- NOTE | 2018-06-08 14:15 | CP.PCM.CON ---
History of Present Illness - History of Present Illness History of Present Illness: Podiatry Consult Note- Dr. Sy 63 year old male with PMH of DM seen and evaluated for leg leg pain. Patient reports having the pain and discoloration to his front leg for over 1 year. Patient reports he sustained the injury from wearing boots. Patient reports that the redness and size of the patch on his leg remains the same. Does not appear bigger. Patient reports mild pain to the front part of the leg. Denies nausea, fever, shortness of breath, chest pains or chills. Denies numbness or tingling. PMH: DM PSH: denies ALL: NKDA FH: mother, grandmother- diabetes SH: reports socially drinking, reports using crack (states last use was last weekend), reports smoking 1 cigarette a day since 21 years old MEDS: see MAR list Past Patient History - Infectious Disease Hx of Infectious Diseases: None - Tetanus Immunizations Tetanus Immunization: Unknown - Past Medical History & Family History Past Medical History?: Yes - Past Social History Smoking Status: Light Smoker < 10 Cigarettes Daily Chewing Tobacco Use: No Cigar Use: No Occupation: [employer] Alcohol: < 2 Drinks/Day Drugs: Cocaine Home Situation {Lives}: Alone - ENDOCRINE/METABOLIC Hx Endocrine Disorders: Yes Hx Diabetes Mellitus Type 2: Yes - PSYCHIATRIC Hx Substance Use: No - SURGICAL HISTORY Hx Surgeries: No Meds Home Medications: Home Medication List Medication Instructions Recorded Confirmed Type Aspirin [Ecotrin] 81 mg PO DAILY #30 tabec 06/08/18 Rx Blood-Glucose Control, Normal 1 each ACHS #1 each 06/08/18 Rx [Meter-Check] Clindamycin [Cleocin] 300 mg PO TID #21 cap 06/08/18 Rx Fluocinonide [Lidex 0.05% Topical 20 applic EXT Q12H #1 bottle 06/08/18 Rx Solution] Lancets/Blood Glucose Strips [Fora 1 each [facility] #1 combo..pkg 06/08/18 Rx [id number] Strp-Lnct] Lisinopril [Zestril] 5 mg PO DAILY #30 tab 06/08/18 Rx MetFORMIN [glucoPHAGE] 1,000 mg PO BID #60 tab 06/08/18 Rx Rosuvastatin Calcium 2.5 [Crestor] 2.5 mg PO HS #30 tab 06/08/18 Rx Allergies/Adverse Reactions: Allergies Allergy/AdvReac Type Severity Reaction Status Date / Time No Known Allergies Allergy Verified 06/07/18 09:04 - Medications Medications: Current Medications Acetaminophen (Tylenol 325mg Tab) 650 mg PO Q6 PRN PRN Reason: Pain, Mild (1-3) Last Admin: 06/08/18 06:35 Dose: 650 mg Apixaban (Eliquis) 10 mg PO BID ELIJAH Stop: 06/14/18 18:01 Last Admin: 06/08/18 10:15 Dose: 10 mg Aspirin (Ecotrin) 81 mg PO DAILY [facility] Last Admin: 06/08/18 10:15 Dose: 81 mg Dextrose (Dextrose 50% Inj) 0 ml IVP .STAT PRN; Protocol PRN Reason: Hypoglycemia Protocol Dextrose (Glutose 15) 0 gm PO .ONCE PRN; Protocol PRN Reason: Hypoglycemia Protocol Glucagon (Glucagen Diagnostic Kit) 0 mg IM .STAT PRN; Protocol PRN Reason: Hypoglycemia Protocol Dextrose (Dextrose 5% In Water 1000 Ml) 1,000 mls @ 0 mls/hr IV .Q0M PRN; Protocol PRN Reason: Hypoglycemia Protocol Piperacillin Sod/Tazobactam (Sod 3.375 gm/ Sodium Chloride) 100 mls @ 200 mls/hr IVPB Q6H ELIJAH; Protocol Last Admin: 06/08/18 08:13 Dose: 200 mls/hr Vancomycin/Sodium Chloride (Vancomycin 1 Gm/Ns 200 Ml) 1 gm in 200 mls @ 133 mls/hr IVPB Q12H ELIJAH; Protocol Stop: 06/12/18 15:31 Last Admin: 06/08/18 03:18 Dose: 133 mls/hr Influenza Virus Vaccine (Flucelvax Quad [id number] Syr) 60 mcg IM .ONCE ONE Stop: 06/10/18 10:01 Insulin Human Regular (Novolin R) 0 unit SC ACHS [facility]; Protocol Last Admin: 06/08/18 12:24 Dose: 1 units Lisinopril (Zestril) 5 mg PO DAILY [facility] Last Admin: 06/08/18 10:16 Dose: 5 mg Nicotine (Nicoderm Cq) 1 patch TD DAILY [facility] Last Admin: 06/08/18 10:16 Dose: 1 patch Pneumococcal Polyvalent Vaccine (Pneumovax 23 Vaccine) 0.5 ml IM .ONCE ONE Stop: 06/10/18 10:01 Rosuvastatin Calcium (Crestor) 2.5 mg PO HS [facility] Last Admin: 06/07/18 21:31 Dose: 2.5 mg Saccharomyces Boulardii (Florastor) 250 mg PO BID [facility] Last Admin: 06/08/18 10:15 Dose: 250 mg Physical Exam - Constitutional Appears: Well, Non-toxic, No Acute Distress - Extremities Exam Extremities exam: Negative for: calf tenderness Additional comments: VASC: DP and PT 2/4 bilaterally, CFT < 3 seconds x 10 digits, temperature gradie nt warm to cool, no edema noted to bilateral lower extremity, tortuous varciosities noted to bilateral lower extremities ORTHO: MM testing is 5/5, pain with palpation to lesion on the anterior aspect of the lower leg NEURO: gross and protective sensation intact bilaterally DERM: no open lesions during examination appreciated. anterior aspect of lower leg with lesion measuring approximately 8 cm x 8 cm, appears to be hyperpigmented with dark discoloration, scaly and dry. Surrounding the lesion ex hibits dark erythema. No increase warmth, no odor, no bleeding, no drainage, no purulence appeared. No fluctanance or abscess appreciated. No streaking noted Callus noted to the medial plantar aspect of left hallux. No openings. Thicken toe nail plate with yellow discoloration. Subungal debris noted x10 Diffuse areas of dark discoloration and xerosis throughout entire lower extremity. - Neurological Exam Neurological exam: Alert, Oriented x3 - Psychiatric Exam Psychiatric exam: Normal Affect, Normal Mood Results - Vital Signs Recent Vital Signs: Last Vital Signs Temp 98 F 06/08/18 00:00 Pulse 97 H 06/08/18 00:00 Resp 20 06/08/18 00:00 BP 122/71 06/08/18 00:00 Pulse Ox 98 06/08/18 00:00 - Labs Result Diagrams: 06/08/18 06:50 06/08/18 06:50 Labs: Laboratory Results - last 24 hr 06/07/18 06/07/18 06/07/18 16:26 21:43 22:19 WBC RBC Hgb Hct MCV MCH MCHC RDW Plt Count MPV Neut % (Auto) Lymph % (Auto) [place] % (Auto) Eos % (Auto) Baso % (Auto) Neut # (Auto) Lymph # (Auto) [place] # (Auto) Eos # (Auto) Baso # (Auto) Sodium Potassium Chloride Carbon Dioxide Anion Gap BUN Creatinine Est GFR ( Amer) Est GFR (Non-Af Amer) POC Glucose (mg/dL) 209 H 115 H Random Glucose Hemoglobin A1c Calcium Total Bilirubin AST ALT Alkaline Phosphatase Total Protein Albumin Globulin Albumin/Globulin Ratio Triglycerides Cholesterol LDL Cholesterol Direct HDL Cholesterol Urine Color Straw Urine Clarity Clear Urine pH 8.0 Ur Specific [place] 1.016 Urine Protein Negative Urine Glucose (UA) Normal Urine Ketones Negative Urine Blood Negative Urine Nitrate Negative Urine Bilirubin Negative Urine Urobilinogen 0.2 Ur Leukocyte Esterase Neg Urine WBC (Auto) < 1 Urine RBC (Auto) < 1 Ur Squamous Epith Cells < 1 Urine Microalbumin Urine Opiates Screen Urine Methadone Screen Ur Barbiturates Screen Ur Phencyclidine Scrn Ur Amphetamines Screen U Benzodiazepines Scrn U Oth Cocaine Metabols U Cannabinoids Screen 06/07/18 06/07/18 06/08/18 22:19 22:19 06:50 WBC RBC Hgb Hct MCV MCH MCHC RDW Plt Count MPV Neut % (Auto) Lymph % (Auto) [place] % (Auto) Eos % (Auto) Baso % (Auto) Neut # (Auto) Lymph # (Auto) [place] # (Auto) Eos # (Auto) Baso # (Auto) Sodium 136 Potassium 3.9 Chloride 103 Carbon Dioxide 26 Anion Gap 10 BUN 12 Creatinine 0.6 L Est GFR ( Amer) > 60 Est GFR (Non-Af Amer) > 60 POC Glucose (mg/dL) Random Glucose 154 H D Hemoglobin A1c Calcium 8.3 L Total Bilirubin 0.4 AST 19 ALT 14 L D Alkaline Phosphatase 89 Total Protein 6.5 Albumin 3.5 Globulin 3.0 Albumin/Globulin Ratio 1.2 Triglycerides 147 Cholesterol 134 LDL Cholesterol Direct 85 HDL Cholesterol 29 L Urine Color Urine Clarity Urine pH Ur Specific [place] Urine Protein Urine Glucose (UA) Urine Ketones Urine Blood Urine Nitrate Urine Bilirubin Urine Urobilinogen Ur Leukocyte Esterase Urine WBC (Auto) Urine RBC (Auto) Ur Squamous Epith Cells Urine Microalbumin 7.8 Urine Opiates Screen Negative Urine Methadone Screen Negative Ur Barbiturates Screen Negative Ur Phencyclidine Scrn Negative Ur Amphetamines Screen Negative U Benzodiazepines Scrn Negative U Oth Cocaine Metabols Negative U Cannabinoids Screen Negative 06/08/18 06/08/18 06/08/18 06:50 06:50 07:21 WBC 5.9 RBC 3.85 L Hgb 12.1 Hct 35.2 MCV 91.6 MCH 31.5 H MCHC 34.4 RDW 12.4 Plt Count 315 MPV 6.9 L Neut % (Auto) 42.0 L Lymph % (Auto) 45.7 H [place] % (Auto) 8.3 Eos % (Auto) 3.0 Baso % (Auto) 1.0 Neut # (Auto) 2.5 Lymph # (Auto) 2.7 [place] # (Auto) 0.5 Eos # (Auto) 0.2 Baso # (Auto) 0.1 Sodium Potassium Chloride Carbon Dioxide Anion Gap BUN Creatinine Est GFR ( Amer) Est GFR (Non-Af Amer) POC Glucose (mg/dL) 166 H Random Glucose Hemoglobin A1c 9.0 H Calcium Total Bilirubin AST ALT Alkaline Phosphatase Total Protein Albumin Globulin Albumin/Globulin Ratio Triglycerides Cholesterol LDL Cholesterol Direct HDL Cholesterol Urine Color Urine Clarity Urine pH Ur Specific [place] Urine Protein Urine Glucose (UA) Urine Ketones Urine Blood Urine Nitrate Urine Bilirubin Urine Urobilinogen Ur Leukocyte Esterase Urine WBC (Auto) Urine RBC (Auto) Ur Squamous Epith Cells Urine Microalbumin Urine Opiates Screen Urine Methadone Screen Ur Barbiturates Screen Ur Phencyclidine Scrn Ur Amphetamines Screen U Benzodiazepines Scrn U Oth Cocaine Metabols U Cannabinoids Screen 06/08/18 12:16 WBC RBC Hgb Hct MCV MCH MCHC RDW Plt Count MPV Neut % (Auto) Lymph % (Auto) [place] % (Auto) Eos % (Auto) Baso % (Auto) Neut # (Auto) Lymph # (Auto) [place] # (Auto) Eos # (Auto) Baso # (Auto) Sodium Potassium Chloride Carbon Dioxide Anion Gap BUN Creatinine Est GFR ( Amer) Est GFR (Non-Af Amer) POC Glucose (mg/dL) 195 H Random Glucose Hemoglobin A1c Calcium Total Bilirubin AST ALT Alkaline Phosphatase Total Protein Albumin Globulin Albumin/Globulin Ratio Triglycerides Cholesterol LDL Cholesterol Direct HDL Cholesterol Urine Color Urine Clarity Urine pH Ur Specific [place] Urine Protein Urine Glucose (UA) Urine Ketones Urine Blood Urine Nitrate Urine Bilirubin Urine Urobilinogen Ur Leukocyte Esterase Urine WBC (Auto) Urine RBC (Auto) Ur Squamous Epith Cells Urine Microalbumin Urine Opiates Screen Urine Methadone Screen Ur Barbiturates Screen Ur Phencyclidine Scrn Ur Amphetamines Screen U Benzodiazepines Scrn U Oth Cocaine Metabols U Cannabinoids Screen Assessment & Plan - Assessment and Plan (Free Text) Assessment: 63 year old male with PMH of DM recently diagnosed with positive DVT with 1) left leg anterior minor hyperpigmented, scaly, dry likely scab 2) B/L lower extr emity xerosis 3) onchymycosis x 10 4) L hallux callus Plan: Patient seen and examined Discussed plan in detail with attending Dr. Sy Labs, vitals, chart reviewed- afebrile and absent leukocytosis All questions/concerns addressed Patient recently diagnosed with left leg DVT U/S- acute deep vein thrombosis of left gastrocnemius veins. Severe reflux noted of the left great saphenous vein Continue treatment per primary team No dressing needed at this time. Will hold off on compression. Recommends lotion daily to bilateral lower extremity. Pat area of anterior left leg lesion clean and dry F/U with Dr. Sy within 1 week in podiatry clinic for diabetic foot risk a ssessment and diabetic routine care in clinic Thank you for allowing us to participate in patient's care Patient stable per podiatry standpoint
[2018-06-08 15:53] VITALS: BP 117/73; PULSE 82; TEMP 98; O2SAT 96
[2018-06-08] MEDS ORDERED: Pneumococcal 23-Valent Vaccine IM ONE (16:30)
[2018-06-08] MEDS ORDERED: Influenza Vaccine 60 mcg/0.5 mL SYR (4YR UP) IM ONE (16:30)
--- NOTE | 2018-06-09 15:46 | CARD ---
APPROVED REPORT Date of service: 06/07/2018 EKG Measurement Heart [id number] <Conclusion> Normal sinus rhythm Normal ECG
== END 2018-06-08 18:16 | disposition home or self-care (01) ==
LOC: C.ER 08:46 → C.9E 11:24 → C.3T 14:36
PROVIDERS: ADMIT Hospitalist; ATTEND Hospitalist
DX: E11.622 Type 2 diabetes mellitus with other skin ulcer (principal); L97.929 Non-pressure chronic ulcer of unspecified part of left lower leg with unspecified severity; E66.9 Obesity, unspecified; F17.210 Nicotine dependence, cigarettes, uncomplicated; I82.492 Acute embolism and thrombosis of other specified deep vein of left lower extremity; B35.1 Tinea unguium; I87.8 Other specified disorders of veins; L03.116 Cellulitis of left lower limb; Z79.82 Long term (current) use of aspirin; Z79.84 Long term (current) use of oral hypoglycemic drugs; Z79.899 Other long term (current) drug therapy; Z83.3 Family history of diabetes mellitus; Z91.19 Patient's noncompliance with other medical treatment and regimen; F14.90 Cocaine use, unspecified, uncomplicated; L85.3 Xerosis cutis
CPT/HCPCS: 36415; 80053; 80061; 80324; 80345; 80346; 80349; 80353; 80358; 80361; 81001; 82043; 82570; 82948; 83036; 83992; 85025; 85610; 85730; 87040; 87070; 90471; 90674; 90732; 93970; 96365; 96372; 97116; 97162; 99285; G0378; G8978; G8979; J1650; J2543; J3370; J7030; J7050

== ENCOUNTER 2018-09-21 10:47 | Emergency (ER) | payer OTHER | END 2018-09-21 11:48 | disposition home or self-care (01) | LOC: C.ER 10:47 | DX: L02.213 Cutaneous abscess of chest wall (principal) ==

== ENCOUNTER 2018-09-25 10:43 | Emergency (ER) | payer OTHER ==
[2018-09-25 10:44] VITALS: BMI 29.2
[2018-09-25 10:50] VITALS: RESP 18
[2018-09-25] MEDS ORDERED: Lidocaine 2% PF (10 ml) Amp INFIL ONE (11:27)
[2018-09-25] MEDS ORDERED: Lidocaine 2% MPF (5 ml) Inj ONE (11:40)
--- NOTE | 2018-09-25 11:59 | C.PDOC ---
History Of Present Illness 63 y/o male,w/PMhx of diabetes, HTN, and DVT, presents to the ER complaining of abscess to left upper chest wall which has been present for the past 1 week.Patient was evaluated from the same complaint in [facility] 4 days ago. At the time, patient was offered I&D, but he refused. He was discharged with prescription for PO abx. He states that he has been taking the abx. However, he notes that that abscess is becoming worse. Denies having cp, sob, abd pain, fever, chills. any drainage from the abscess. Chief Complaint (Nursing): Abnormal Skin Integrity History Per: Patient History/Exam Limitations: no limitations Onset/Duration Of Symptoms: Days Current Symptoms Are (Timing): Still Present Severity: Moderate Past Medical History Reviewed: Historical Data, Nursing Documentation, Vital Signs Vital Signs: Last Vital Signs Temp 97.7 F 09/25/18 10:47 Pulse 92 H 09/25/18 10:47 Resp 18 09/25/18 10:47 BP 97/64 L 09/25/18 10:47 Pulse Ox 100 09/25/18 10:47 Primary Care Provider: Yamileth Mcnair - Medical History PMH: Diabetes, HTN Surgical History: No Surg Hx Family History: States: No Known Family Hx - Social History Hx Alcohol Use: Yes Hx Substance Use: Yes - Immunization History Hx Tetanus Toxoid Vaccination: No Hx Influenza Vaccination: No Hx Pneumococcal Vaccination: No Review Of Systems Except As Marked, All Systems Reviewed And Found Negative. Constitutional: Negative for: Fever, Chills Skin: Positive for: Other (abscess to left upper chest wall) Physical Exam - Physical Exam Appears: Non-toxic, No Acute Distress Skin: Normal Color, Warm, Dry, Other (2cm/2cm abscess to left upper chest wall w/surrounding erythema, no drainage, no streaking) Head: Atraumatic, Normacephalic Eye(s): bilateral: Normal Inspection Nose: Normal Oral Mucosa: Moist Neck: Supple Chest: Symmetrical Neurological/Psych: Oriented x3, Normal Speech ED Course And Treatment O2 Sat by Pulse Oximetry: 100 (RA) Pulse Ox Interpretation: Normal - Incision & Drainage Of Abscess Anesthesia: Lidocaine 2% Prep Used: Sterile Water, Betadine Procedure: Incised W/Scalpel Blade#: (11), Drained Pus, Packed W/Gauze Medical Decision Making Medical Decision Making: Patient gave verbal consent for I&D. Patient tolerated I&D well, site was hemostatic and sterile dressing was applied. Patient is stable for d/c home. Patient instructed to continue taking abx as prescribed and RTED in 2 days for wound check. Patient verbalized understanding of his d/c instructions. Disposition Counseled Patient/Family Regarding: Diagnosis, Need For Followup - Disposition Disposition: HOME/ ROUTINE Disposition Time: 11:55 Condition: IMPROVED Additional Instructions: LYN LONDON, thank you for letting us take care of you today. Your provider was Kristan Foster MD and you were treated for ABSCESS. The emergency medical care you received today was directed at your acute symptoms. It may take several days for your symptoms to resolve. Return to the Emergency Department if your symptoms worsen, do not improve, or if you have any other problems. Please RETURN TO THE EMERGENCY DEPARTMENT IN 2 DAYS FOR WOUND CHECK. TAKE YOUR ANTIBIOTICS PRESCRIBED. Bring any paperwork you were given at discharge with you along with any medications you are taking to your follow up visit. Our treatment cannot replace ongoing medical care by a primary care provider outside of the emergency department. Thank you for allowing the [facility] team to be part of your care today. Instructions: Abscess Incision and Drainage (DC) Forms: the [employer] (Setswana), Gen Discharge Inst Latvian - POA Present On Arrival: None - Clinical Impression Clinical Impression: Abscess of chest wall - Scribe Statement The provider has reviewed the documentation as recorded by the Jeremías England Provider Attestation: All medical record entries made by the Jeremías were at my direction and personally dictated by me. I have reviewed the chart and agree that the record accurately reflects my personal performance of the history, physical exam, medical decision making, and the department course for this patient. I have also personally directed, reviewed, and agree with the discharge instructions and disposition.
[2018-09-25 12:02] VITALS: BP 114/69; PULSE 86; TEMP 98.5
[2018-09-25 12:17] VITALS: O2SAT 100
== END 2018-09-25 12:10 | disposition home or self-care (01) ==
LOC: C.ER 10:43
DX: L02.213 Cutaneous abscess of chest wall (principal)

== ENCOUNTER 2018-09-27 19:24 | Emergency (ER) | payer OTHER ==
[2018-09-27 19:24] VITALS: BMI 29.2
[2018-09-27 19:36] VITALS: BP 129/79; PULSE 93; RESP 20; TEMP 97.3; O2SAT 100
--- NOTE | 2018-09-27 19:52 | C.PDOC ---
History Of Present Illness 63-year-old male presents to the ED for wound check. Patient was seen in the ED on 09/25 and underwent incision and drainage to his left upper chest wall. Patient states he has a few more days left of his Clindamycin prescription. He states the wound appears better and is less painful than before. Patient reports noticing some bleeding from the wound, but otherwise denies fever, chills, nausea, vomiting, and weakness. Chief Complaint (Nursing): Wound Check History Per: Patient History/Exam Limitations: no limitations Onset/Duration Of Symptoms: Days Ago Current Symptoms Are (Timing): Better Location Of Injury: Anterior: Chest Quality Of Symptoms: Painful Additional History Per: Patient Past Medical History Reviewed: Historical Data, Nursing Documentation, Vital Signs Vital Signs: Last Vital Signs Temp 97.3 F L 09/27/18 19:33 Pulse 93 H 09/27/18 19:33 Resp 20 09/27/18 19:33 BP 129/79 09/27/18 19:33 Pulse Ox 100 09/27/18 19:33 Primary Care Provider: FAMILY PROVIDER,NO - Medical History PMH: Diabetes, HTN Surgical History: No Surg Hx Family History: States: Unknown Family Hx - Social History Hx Alcohol Use: Yes Hx Substance Use: Yes - Immunization History Hx Tetanus Toxoid Vaccination: No Hx Influenza Vaccination: No Hx Pneumococcal Vaccination: No Review Of Systems Constitutional: Negative for: Fever, Chills Gastrointestinal: Negative for: Nausea, Vomiting Skin: Positive for: Other (wound check ) Neurological: Negative for: Weakness, Numbness Physical Exam - Physical Exam Appears: Non-toxic, No Acute Distress Skin: Normal Color, Warm, Dry, Other (packing in place on right upper chest with slight erythema surrounding wound and slight tenderness to palpitations ) Head: Atraumatic, Normacephalic Eye(s): bilateral: Normal Inspection Neck: Normal ROM, Supple Chest: Deformity (due ot abscess of left side), Tenderness Cardiovascular: Rhythm Regular Respiratory: Normal Breath Sounds, No Wheezing Gastrointestinal/Abdominal: Soft, No Tenderness Neurological/Psych: Oriented x3, Normal Speech, Normal Cognition, Normal Motor, Normal Sensation ED Course And Treatment O2 Sat by Pulse Oximetry: 100 (on RA ) Pulse Ox Interpretation: Normal Medical Decision Making Medical Decision Making: Progress: Packing was removed, scant drainage expressed. Area was repacked and bandage applied. On reassessment, patient is resting comfortably, showing no signs of distress and is stable for discharge. Patient given further wound care and follow-up instructions. Disposition Counseled Patient/Family Regarding: Diagnosis, Need For Followup - Disposition Referrals: [facility] at [facility] [Outside] Disposition: HOME/ ROUTINE Disposition Time: 19:49 Condition: STABLE Additional Instructions: wound is healing well but there is still slight drainage return in 2 days for wound check finish antibiotics and continue to take tylenol as needed for pain Instructions: Wound Care (DC) Forms: [employer] (South African) - Clinical Impression Clinical Impression: Wound check, abscess - PA / [employer] / Resident Statement MD/DO has reviewed & agrees with the documentation as recorded. - Scribe Statement The provider has reviewed the documentation as recorded by the Scribe (Isha Mendiola) All medical record entries made by the Scribe were at my direction and personally dictated by me. I have reviewed the chart and agree that the record accurately reflects my personal performance of the history, physical exam, medical decision making, and the department course for this patient. I have also personally directed, reviewed, and agree with the discharge instructions and disposition.
== END 2018-09-27 20:02 | disposition home or self-care (01) ==
LOC: C.ER 19:24
DX: Z48.00 Encounter for change or removal of nonsurgical wound dressing (principal); L02.213 Cutaneous abscess of chest wall

== ENCOUNTER 2018-09-29 08:22 | Emergency (ER) | payer OTHER ==
[2018-09-29 08:30] VITALS: BMI 27.6
[2018-09-29 08:33] VITALS: RESP 18; O2SAT 99
--- NOTE | 2018-09-29 10:04 | C.PDOC ---
History Of Present Illness 63 year old male presents to ED requesting wound check. Patient had an I&D of an abscess to his left chest wall 4 days ago. He was also seen in the ED 2 days ago for wound check with no abnormalities . He complains of itching to the skin surround the tape. Patient denies fever, chills, or discharge from the affected area. Time Seen by Provider: 09/29/18 08:58 Chief Complaint (Nursing): Wound Check History Per: Patient History/Exam Limitations: no limitations Onset/Duration Of Symptoms: Abscess (wound check s/p I and D) Current Symptoms Are (Timing): Still Present Location Of Injury: Left: Chest (abscess s/p I and D to the chest wall) Quality Of Symptoms: Itching. denies: Painful, Swollen, Draining Past Medical History Reviewed: Historical Data, Nursing Documentation, Vital Signs Vital Signs: Last Vital Signs Temp 99.3 F 09/29/18 08:30 Pulse 89 09/29/18 08:30 Resp 18 09/29/18 08:30 BP 123/77 09/29/18 08:30 Pulse Ox 99 09/29/18 08:30 Primary Care Provider: FAMILY PROVIDER,NO - Medical History PMH: Diabetes, HTN Surgical History: No Surg Hx Family History: States: Unknown Family Hx - Social History Hx Alcohol Use: No Hx Substance Use: Yes - Immunization History Hx Tetanus Toxoid Vaccination: No Hx Influenza Vaccination: No Hx Pneumococcal Vaccination: No Review Of Systems Constitutional: Negative for: Fever, Chills, Weakness Skin: Positive for: Other (itching to the site of I and D, no discharge) Neurological: Negative for: Weakness, Numbness Physical Exam - Physical Exam Appears: Well, Non-toxic, No Acute Distress Skin: Warm, Dry, Other (dressing and packing removed from the I and D site, mild erythema and induration to the left chest wall, no signs of infection, no drainage) Head: Atraumatic, Normacephalic Neck: Normal ROM, Supple Chest: Symmetrical, No Deformity, No Tenderness Respiratory: No Accessory Muscle Use, No Rales, No Rhonchi, No Wheezing Gastrointestinal/Abdominal: Soft, No Tenderness Extremity: Capillary Refill (<2 seconds) Neurological/Psych: Oriented x3, Normal Speech, Normal Cognition ED Course And Treatment O2 Sat by Pulse Oximetry: 99 (in RA) Pulse Ox Interpretation: Normal Medical Decision Making Medical Decision Making: pt finished clindamycin; given mild surrounding erythema, will place on keflex for a week. Disposition Counseled Patient/Family Regarding: Diagnosis, Need For Followup, Rx Given - Disposition Referrals: [facility] [Outside] Disposition: HOME/ ROUTINE Disposition Time: 10:04 Condition: GOOD Additional Instructions: Mantenga la herida limpia y seca. Qutese la venda al baarse y deje que entre agua y jabn en la herida. Nancy antibiticos hasta terminar. Alexandrea un seguimiento con mcmahon mdico o regrese a la saleem de emergencias para detectar sntomas peores. Keep wound clean and dry. Take off bandage when bathing and have soap and water get into wound. Take antibiotics until done. Follow up with your doctor or return to ER for any worse symptoms. Rx to [facility] Prescriptions: Cephalexin [Keflex] 500 mg PO Q6 #28 capsule Forms: Gen Discharge Inst Cymro, [place] (Cymro) Print Language: YAKUT - Clinical Impression Clinical Impression: Wound check, abscess - PA / [employer] / Resident Statement MD/DO has reviewed & agrees with the documentation as recorded. (Tennille Victor) - Scribe Statement The provider has reviewed the documentation as recorded by the Scribe (Tennille Victor) All medical record entries made by the Scribe were at my direction and personally dictated by me. I have reviewed the chart and agree that the record accurately reflects my personal performance of the history, physical exam, medical decision making, and the department course for this patient. I have also personally directed, reviewed, and agree with the discharge instructions and disposition.
[2018-09-29 10:18] VITALS: BP 110/63; PULSE 82; TEMP 97.9
== END 2018-09-29 10:33 | disposition home or self-care (01) ==
LOC: C.ER 08:22
DX: Z48.00 Encounter for change or removal of nonsurgical wound dressing (principal); L02.213 Cutaneous abscess of chest wall